=== PATIENT | male | born 1970 | race Caucasian/White ===

== ENCOUNTER 2021-02-05 10:15 | Observation (INO) ==
[2021-02-05] MEDS ORDERED: Isovue-370 500 ML BOTTLE IVP ONE (10:22)
[2021-02-05] MEDS ORDERED: Ipratropium/Albuterol Neb 3 ML IH ONE (10:22)
[2021-02-05 10:50] LABS: Basophils % 0.2 %; Eosinophils # 1.8 K/mcL (0.0-0.6); Eosinophils % 13.9 %; Hematocrit 41.4 % (37.5-50.1); Hemoglobin 14.1 g/dL (12.9-16.9); Immature Granulocytes % 0.3 % (0-4); Lymphocytes # 1.7 K/mcL (0.6-4.6); Lymphocytes % 12.9 %; Mean Corpuscular HGB Conc 34.1 g/dL (31.6-35.5); Mean Corpuscular Hemoglobin 30.9 pg (28.0-33.3); Mean Corpuscular Volume 90.8 fL (83.0-100.0); Mean Platelet Volume 10.3 fL (9.4-12.4); Monocytes # 0.9 K/mcL (0.0-1.3); Monocytes % 7.2 %; Neutrophils # 8.5 K/mcL (1.6-8.9); Platelet Count 250 K/mcL (140-400); Red Blood Count 4.56 M/mcL (4.19-5.50); Red Cell Distribution Width 12.8 % (11.5-14.5); Segmented Neutrophils % 65.5 %; White Blood Count 12.9 K/mcL (4.3-11.1)
[2021-02-05 11:00] LABS: ABG Base Excess -2 mEq/L (-2 to 3); ABG HCO3 23 mEq/L (21-27); ABG Oxygen Saturation 94 % (95-98); ABG PCO2 36 mmHg (35-45); ABG PH 7.41 pH Units (7.32-7.45); ABG PO2 68 mmHg (85-104); ABG TCO2 24 mEq/L (20-26)
[2021-02-05 11:07] LABS: BUN/Creatinine Ratio 21 (6-26); Blood Urea Nitrogen 16 mg/dL (6-20); Calcium 9.2 mg/dL (8.6-10.3); Carbon Dioxide 22 mEq/L (23-29); Chloride 102 mEq/L (98-107); Glucose 104 mg/dL (70-105); Osmolality,Calculated 283 (280-300); Sodium 136 mEq/L (136-145); eGFR For African Americans > 60 (> 60); eGFR For Non-African Americans > 60 (> 60)
[2021-02-05 11:17] LABS: Troponin I 0.06 ng/mL (< 0.04)
[2021-02-05 11:25] LABS: Influenza A PCR Negative (Negative); Influenza B PCR Negative (Negative); Resp. Syncytial Virus PCR Negative (Negative); SARS-CoV-2 by PCR (In House) Negative (Negative)
[2021-02-05] MEDS ORDERED: Ondansetron 4 MG/2 ML VIAL IVP PRN (12:38)
[2021-02-05] MEDS ORDERED: *HR* HYDROcodone/Acet 5/325 mg TABLET PO PRN (12:38)
[2021-02-05] MEDS ORDERED: Naloxone 0.4 MG/ML INJ IVP PRN (12:38)
[2021-02-05] MEDS ORDERED: Ipratropium/Albuterol Neb 3 ML IH PRN (12:40)
[2021-02-05] MEDS ORDERED: levoFLOXacin 750 MG/150 ML 750 MG/150 ML BAG IVPB SCH (13:00)
[2021-02-05] MEDS ORDERED: *HR* LORazepam 2 MG/ML VIAL IVP PRN ×3 (13:02→13:03)
[2021-02-05] MEDS: MethylPREDNISolone 40 MG/ML VIAL IVP SCH (15:26)
[2021-02-05] MEDS: *HR* Heparin 5,000 UNIT/ML VIAL SQ SCH (17:34)
[2021-02-06] MEDS: MethylPREDNISolone 40 MG/ML VIAL IVP SCH ×3 (00:24→17:33)
[2021-02-06 04:51] LABS: Basophils % 0.3 %; Eosinophils # 0.1 K/mcL (0.0-0.6); Eosinophils % 1.4 %; Hematocrit 41.2 % (37.5-50.1); Hemoglobin 13.9 g/dL (12.9-16.9); Immature Granulocytes % 0.7 % (0-4); Lymphocytes # 1.2 K/mcL (0.6-4.6); Mean Corpuscular HGB Conc 33.7 g/dL (31.6-35.5); Mean Corpuscular Hemoglobin 31.4 pg (28.0-33.3); Mean Platelet Volume 10.4 fL (9.4-12.4); Monocytes # 0.4 K/mcL (0.0-1.3); Platelet Count 258 K/mcL (140-400); Red Blood Count 4.43 M/mcL (4.19-5.50); Red Cell Distribution Width 12.7 % (11.5-14.5); Segmented Neutrophils % 81.6 %; White Blood Count 9.8 K/mcL (4.3-11.1)
[2021-02-06 05:11] LABS: BUN/Creatinine Ratio 24 (6-26); Blood Urea Nitrogen 17 mg/dL (6-20); Calcium 9.5 mg/dL (8.6-10.3); Carbon Dioxide 24 mEq/L (23-29); Chloride 105 mEq/L (98-107); Cholesterol 133 mg/dL (< 200); Glucose 158 mg/dL (70-105); HDL Cholesterol 33 mg/dL (40-59); LDL Cholesterol,Calculated 78 mg/dL (< 100); Osmolality,Calculated 289 (280-300); Potassium 4.3 mEq/L (3.5-5.1); Sodium 137 mEq/L (136-145); Triglycerides 112 mg/dL (< 150); eGFR For African Americans > 60 (> 60); eGFR For Non-African Americans > 60 (> 60)
[2021-02-06] MEDS: *HR* Heparin 5,000 UNIT/ML VIAL SQ SCH ×2 (06:49→17:32)
[2021-02-06] MEDS: lisinopriL 10 MG TABLET PO SCH (08:41)
[2021-02-06] MEDS: Cholecalciferol (D-3) 1,000 UNIT (25MCG) TABLET PO SCH (08:41)
[2021-02-06] MEDS: BuPROPion XL (24 HR) 150 MG TABLET PO SCH (08:41)
[2021-02-06] MEDS ORDERED: Thiamine (B-1) 200 MG in 0.9 % Sodium Chloride 50 ML IVPB SCH (09:00)
[2021-02-06] MEDS ORDERED: Folic Acid 1 MG in 0.9 % Sodium Chloride 50 ML IVPB SCH (09:00)
[2021-02-07] MEDS: MethylPREDNISolone 40 MG/ML VIAL IVP SCH (06:27)
[2021-02-07] MEDS: *HR* Heparin 5,000 UNIT/ML VIAL SQ SCH (06:27)
[2021-02-07 06:49] VITALS: TEMP 97.7; O2SAT 94
[2021-02-07] MEDS ORDERED: Thiamine (B-1) 100 MG TABLET PO SCH (09:00)
[2021-02-07] MEDS ORDERED: levoFLOXacin 750 MG TABLET PO SCH (09:00)
[2021-02-07] MEDS ORDERED: Folic Acid 1 MG TABLET PO SCH (09:00)
[2021-02-07] MEDS: BuPROPion XL (24 HR) 150 MG TABLET PO SCH (09:35)
[2021-02-07] MEDS: lisinopriL 10 MG TABLET PO SCH (09:35)
[2021-02-07] MEDS: Cholecalciferol (D-3) 1,000 UNIT (25MCG) TABLET PO SCH (09:35)
[2021-02-07 10:53] VITALS: BP 136/78; PULSE 78
== END 2021-02-07 16:32 | disposition home or self-care (01) ==
LOC: EMEROOARM 10:15 → 3NENU 10:15 → SUATTDRO 13:05 → 3NENU 14:51
PROVIDERS: ADMIT Family Medicine; ATTEND Internal Medicine